=== PATIENT | female | born 1930 | race Caucasian/White ===

== ENCOUNTER 2017-02-23 12:00 | Emergency (ER) | payer MEDICARE, OTHER ==
[~2017-02-23] VITALS: Ht 160 cm; Wt 70.0 kg
[~2017-02-23 12:00] MED LIST: BEN25 PO; LISI20TA11 PO; LORA-441 PO; NITR-36 PO
[2017-02-23 12:11] VITALS: Ht 160 cm; Wt 70.0 kg
[2017-02-23] MEDS ORDERED: SOD CHLORIDE 0.9% 1,000 ML IV STA (12:23)
[2017-02-23 12:55] LABS: ABNORMAL IP MESSAGE 1; BASOPHIL # 0.1 10^3/ul (0.0-0.1); BASOPHILS % 0.7 % (0.0-2.0); EOSINOPHILS % 0.3 % (0.0-7.0); HEMATOCRIT 37.5 % (37.0-47.0); HEMOGLOBIN 12.8 g/dl (12.0-16.0); LYMPHOCYTES # 0.5 10^3/ul (0.8-2.9); LYMPHOCYTES % 6.7 % (15.0-51.0); MEAN CORPUSCULAR HEMOGLOBIN 31.6 pg (29.0-33.0); MEAN CORPUSCULAR HGB CONC 34.1 g/dl (32.0-37.0); MEAN CORPUSCULAR VOLUME 92.6 fl (82.0-101.0); MONOCYTE # 0.6 10^3/ul (0.3-0.9); MONOCYTES % 7.7 % (0.0-11.0); NEUTROPHIL # 6.2 10^3/ul (1.6-7.5); NEUTROPHILS % 84.1 % (39.0-77.0); PLATELET COUNT 262 10^3/UL (140-415); RED BLOOD COUNT 4.05 10^6/ul (4.20-5.40); RED CELL DISTRIBUTION WIDTH 12.6 % (11.5-14.5); WHITE BLOOD COUNT 7.4 10^3/ul (4.8-10.8)
[2017-02-23] MEDS ORDERED: ASPI81TA3 PO (13:06)
[2017-02-23] MEDS ORDERED: ATOR40TA68 PO (13:06)
[2017-02-23 13:14] LABS: ALANINE AMINOTRANSFERASE 36 IU/L (13-69); ALBUMIN/GLOBULIN RATIO 1.29; ALKALINE PHOSPHATASE 97 IU/L (42-121); ANION GAP 11 (8-16); ASPARTATE AMINO TRANSFERASE 32 IU/L (15-46); BILIRUBIN,INDIRECT 0.9 mg/dl (0-1.1); BILIRUBIN,TOTAL 0.9 mg/dl (0.2-1.3); BLOOD UREA NITROGEN 8 mg/dl (7-20); CARBON DIOXIDE 26 mmol/L (21-31); CHLORIDE 98 mmol/L (97-110); CREATININE 0.49 mg/dl (0.44-1.00); GLUCOSE 108 mg/dl (70-220); POTASSIUM 3.8 mmol/L (3.5-5.1); SODIUM 131 mmol/L (135-144); TOTAL PROTEIN 7.1 g/dl (6.1-8.1)
[2017-02-23 13:25] LABS: INR 1.19; PROTIME 15.2 Sec (12.2-14.2); PT RATIO 1.2
[2017-02-23 13:26] LABS: TROPONIN-I < 0.012 ng/ml (0.00-0.12)
--- NOTE | 2017-02-23 14:18 | RADRPT ---
PROCEDURE: XR Knee. CLINICAL INDICATION: Knee pain TECHNIQUE: Three views of the right knee are available for review. COMPARISON: None available FINDINGS: There is mild narrowing and small marginal osteophyte formation at the femoral tibial compartments. The patellofemoral compartment appears grossly maintained. There is chondrocalcinosis in the region of the menisci. No acute osseous abnormality is seen. Decreased bone mineral density. A joint effusi on. IMPRESSION: 1. Decreased bone mineral density without radiographic evidence for fracture. Please note that MRI o r CT is more sensitive in evaluating for a nondisplaced fractures in this setting. 2. Mild degenerative changes of the femorotibial compartments and evidence of chondrocalcinosis. 3. Joint effusion. RPTAT: [facility]U .Darío Alvares MD, MD Date Time Electronically viewed and signed by .Darío Alvares MD, MD on 02/23/2017 14:17 .d/
[2017-02-23 14:38] LABS: ADD UMIC NO; UR ASCORBIC ACID NEGATIVE (NEGATIVE); UR BILIRUBIN (Dip) NEGATIVE (NEGATIVE); UR BLOOD (Dip) NEGATIVE (NEGATIVE); UR CLARITY CLEAR (CLEAR); UR COLOR YELLOW (YELLOW); UR GLUCOSE (Dip) NEGATIVE (NEGATIVE); UR KETONES (Dip) NEGATIVE (NEGATIVE); UR LEUKOCYTE ESTERASE (Dip) NEGATIVE Leu/ul (NEGATIVE); UR NITRITE (Dip) NEGATIVE (NEGATIVE); UR SPECIFIC GRAVITY (Dip) 1.005 (1.003-1.030); UR TOTAL PROTEIN (Dip) NEGATIVE (NEGATIVE); UR UROBILINOGEN (Dip) NEGATIVE (NEGATIVE)
--- NOTE | 2017-02-23 15:18 | RADRPT ---
PROCEDURE: XR Chest 1 View. CLINICAL INDICATION: Shortness of breath. Pain. TECHNIQUE: AP view of the chest was obtained. COMPARISON: None. FINDINGS: The heart size is within normal limits. Calcified atherosclerosis is noted in the aorta. Lungs are hyperexpanded. Mild interstitial prominence is seen in both lungs. No consolidations are identified. No pneumothorax is seen. Osseous structures are intact. Old, healed left rib fracture is seen. IMPRESSION: Calcified atherosclerosis in the aorta. Hyperexpanded lungs with diffuse mild interstitial prominence in both lungs. Interstitial prominenc e could be chronic. Findings could reflect COPD. RPTAT: AA .Pepito Clifton MD, Date Time Electronically viewed and signed by .Pepito Clifton MD, MD on 02/23/2017 15:18 .P/
[2017-02-23] MEDS ORDERED: NAPR-260 PO (15:46)
[2017-02-23 15:56] VITALS: BP 141/89; PULSE 141; RESP 20
--- NOTE | 2017-02-23 18:46 | ERD ---
ER Documentation Chief Complaint Date/Time DATE: 02/23/17 TIME: 18:41 Chief Complaint [place] fall, has right knee pain HPI 86-year-old woman brought in by EMS for pain and swelling to the right anterior knee after trip and fall yesterday while at home. Patient states she has pain with ambulation and normally ambulates with the use of a walker. She has been able to do so although complains of knee pain since the fall yesterday. She denies head or neck injury, no loss of consciousness, no chest pain or shortness of breath. Patient denies fevers or chills. Patient was transported here by EMS without further complications. ROS All systems reviewed and are negative except as per history of present illness. Medications Home Meds Active Scripts Naproxen* (Naprosyn*) 500 Mg Tablet, 500 MG PO BID Y for PAIN AND/OR INFLAMMATION, #30 TAB Prov:NELL PUENTE MD 02/23/17 Reported Medications Aspirin* (Aspirin* Chew) 81 Mg Tab.chew, 81 MG PO DAILY, TAB.CHEW 02/23/17 Atorvastatin* (Atorvastatin*) 40 Mg Tablet, 40 MG PO QHS, #30 TAB 02/23/17 Lisinopril* (Lisinopril*) 20 Mg Tablet, 20 MG PO DAILY, TAB 02/23/14 Nitrofurantoin Macrocrystal* (Macrodantin*) 100 Mg Capsule, 100 MG PO DAILY, CAP 02/23/14 Lorazepam* (Ativan*) 0.5 Mg Tablet, 1 MG PO HS Y for INSOMNIA, TAB 02/23/14 Discontinued Reported Medications Diphenhydramine Hcl* (Benadryl*) 25 Mg Cap, 25 MG PO HS Y for INSOMNIA, CAP 02/23/14 Allergies Allergies: Coded Allergies: Penicillins (Verified Allergy, Mild, 02/23/14) codeine (Verified Allergy, Mild, 02/23/14) ketorolac (Verified Allergy, Mild, 02/23/14) Sulfa (Sulfonamide Antibiotics) (Verified Allergy, Unknown, 02/23/14) PMhx/Soc Hypertension, osteoporosis, dyslipidemia, arthritis History of Surgery: Yes (RIGHT HIP REPLACEMENT 2003, LT LUMPECTOMY 2000) Anesthesia Reaction: No Hx Neurological Disorder: No Hx Respiratory Disorders: No Hx Cardiac Disorders: Yes (HTN) Hx Psychiatric Problems: Yes (ANXIETY) Hx Miscellaneous Medical Probl: Yes (DIVERTICULITIS) Hx Alcohol Use: Yes (WHISKY 1/2 OZ EVERY NIGHT) Hx Substance Use: No Hx Tobacco Use: No Smoking Status: Never smoker FmHx Family History: No diabetes Physical Exam Vitals Vital Signs Date Time Temp Pulse Resp B/P Pulse Ox O2 Delivery O2 Flow Rate FiO2 02/23/17 15:56 141 20 141/89 99 Room Air 02/23/17 12:11 97.8 18 79 151/87 99 Physical Exam GENERAL: Well-developed, well-nourished, appears dehydrated, afebrile HEENT: dry mucous membranes, pink conjunctiva, no cervical spine tenderness or step-off deformities, no goiter, no jaundice or icterus, extraocular movements intact without pain. No submandibular induration, and no pharyngeal erythema NEURO: Alert and oriented 3, cranial nerves II through XII intact bilaterally, pupils equal round reactive to light, no focal deficits or facial asymmetry, sensation intact distally Strength 5/5 in upper and lower extremities bilaterally CARDIAC: Regular rate and rhythm, no murmurs rubs or gallops LUNGS: Clear bilaterally no wheezing crackles or stridor ABDOMEN: Soft nontender, no guarding, no rigidity, no rebound, no psoas sign no obturator sign. Normoactive bowel sounds SKIN: Warm and dry to touch, positive soft tissue contusion and hematoma to the anterior right knee, no bony tenderness noted EXTREMITIES: No clubbing cyanosis or edema, calves are bilaterally symmetrical, no Homans sign, no popliteal cord sign. Distal pulses equal and bilateral PSYCH: Normal affect without agitation or irritability Result Diagram: 02/23/17 1245 02/23/17 1245 Results 24 hrs Laboratory Tests Test 02/23/17 12:45 02/23/17 14:00 White Blood Count 7.410^3/ul Red Blood Count 4.0510^6/ul Hemoglobin 12.8g/dl Hematocrit 37.5% Mean Corpuscular Volume 92.6fl Mean Corpuscular Hemoglobin 31.6pg Mean Corpuscular Hemoglobin Concent 34.1g/dl Red Cell Distribution Width 12.6% Platelet Count 11857^3/UL Mean Platelet Volume 10.0fl Neutrophils % 84.1% Lymphocytes % 6.7% Monocytes % 7.7% Eosinophils % 0.3% Basophils % 0.7% Nucleated Red Blood Cells % 0.0/100WBC Neutrophils # 6.210^3/ul Lymphocytes # 0.510^3/ul Monocytes # 0.610^3/ul Eosinophils # 0.010^3/ul Basophils # 0.110^3/ul Nucleated Red Blood Cells # 0.010^3/ul Prothrombin Time 15.2Sec Prothrombin Time Ratio 1.2 INR International Normalized Ratio 1.19 Sodium Level 131mmol/L Potassium Level 3.8mmol/L Chloride Level 98mmol/L Carbon Dioxide Level 26mmol/L Anion Gap 11 Blood Urea Nitrogen 8mg/dl Creatinine 0.49mg/dl Glucose Level 108mg/dl Calcium Level 9.0mg/dl Total Bilirubin 0.9mg/dl Direct Bilirubin 0.00mg/dl Indirect Bilirubin 0.9mg/dl Aspartate Amino Transf (AST/SGOT) 32IU/L Alanine Aminotransferase (ALT/SGPT) 36IU/L Alkaline Phosphatase 97IU/L Troponin I < 0.012ng/ml Total Protein 7.1g/dl Albumin 4.0g/dl Globulin 3.10g/dl Albumin/Globulin Ratio 1.29 Lipase 191U/L Urine Color YELLOW Urine Clarity CLEAR Urine pH 8.0 Urine Specific [place] 1.005 Urine Ketones NEGATIVEmg/dL Urine Nitrite NEGATIVEmg/dL Urine Bilirubin NEGATIVEmg/dL Urine Urobilinogen NEGATIVEmg/dL Urine Leukocyte Esterase NEGATIVELeu/ul Urine Hemoglobin NEGATIVEmg/dL Urine Glucose NEGATIVEmg/dL Urine Total Protein NEGATIVEmg/dl Current Medications Medications (Trade) Dose Ordered Sig/Simon Route PRN Reason Start Time Stop Time Status Last Admin Dose Admin Sodium Chloride (NS) 1,000 ml @ 1,000 mls/hr Q1H STAT IV 02/23/17 12:23 02/23/17 13:22 DC 02/23/17 12:23 Procedures/MDM IV line was established patient was placed on monitoring engineer rhythm strip revealed a sinus rhythm at about 80 bpm.. Patient was afebrile. I administered 1 L normal saline intravenously for dehydration. Patient had no complaints of pain. EKG performed, read by me revealed a sinus rhythm at 75 bpm, normal axis, narrow QRS complex, no concerning ST elevations or depressions noted. PACs. One AP view of the chest performed, read by me reveals no acute infiltrates, normal mediastinum, sharp costophrenic and cardiac borders, no air under the diaphragm. Otherwise unremarkable chest x-ray. 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 Urine analysis was negative for infection. I spoke to her PMD Dr. Valentine regarding her presentation and symptomatology , and x-ray findings, we have no indication for admission at this time, no need for further imaging. He agreed to follow-up with the patient in his office I provided soft splinting to the right knee with Albin elastic bandage. Splint Assessment: Neurovascularly intact post splint placement with good fit. Differential diagnoses considered, included but not limited to acute coronary syndrome, pulmonary embolism, aortic dissection, abdominal aortic aneurysm, sepsis, stroke, meningitis, encephalitis, pneumonia, appendicitis, cholecystitis , bowel obstruction, pyelonephritis, nephrolithiasis, cystitis, as well as metabolic, hematologic, and electrolyte abnormalities. As well as abscess, cellulitis, fractures, and dislocations. Patient feels much better at this time, and vital signs are normal, symptoms have improved. I did give strict instructions to return to the ED if symptoms continue or worsen, patient will otherwise follow-up with primary care physician. Patient understood instructions and agreed to plan. Disclaimer: Inadvertent spelling and grammatical errors are likely due to EHR/ dictation software use and do not reflect on the overall quality of patient care. Also, please note that the electronic time recorded on this note does not necessarily reflect the actual time of the patient encounter. Departure Diagnosis: Primary Impression: Hematoma Additional Impression: Knee sprain Encounter type: initial encounter Involved ligament of knee: unspecified ligament Laterality: right Qualified Code: S83.91XA - Sprain of right knee, unspecified ligament, initial encounter Condition: Good Patient Instructions: Hematoma, Knee Sprain NELL PUENTE MD Feb 23, 2017 18:46
== END 2017-02-23 15:58 | disposition home or self-care (01) ==
LOC: E/R 12:00
DX: S80.01XA Contusion of right knee, initial encounter (principal); R40.2252 Coma scale, best verbal response, oriented, at arrival to emergency department; S83.91XA Sprain of unspecified site of right knee, initial encounter; I10 Essential (primary) hypertension; R40.2142 Coma scale, eyes open, spontaneous, at arrival to emergency department; R40.2362 Coma scale, best motor response, obeys commands, at arrival to emergency department; W01.0XXA Fall on same level from slipping, tripping and stumbling without subsequent striking against object, initial encounter; Y92.009 Unspecified place in unspecified non-institutional (private) residence as the place of occurrence of the external cause; Z79.82 Long term (current) use of aspirin
CPT/HCPCS: 36415; 71010; 73562; 80053; 81003; 83690; 84484; 85025; 85610; 93005; 99285; J7030; P9612